=== PATIENT | female | born 1985 | race Caucasian/White ===

== ENCOUNTER → 2016-12-08 11:24 | Emergency (ER) | payer SELFPAY ==
[~2016-12-08 11:24] MED LIST: Ketorolac INJ* 30 MG/ML 1 ML VIAL IV PUSH ONE; Metoclopramide IV* 5 MG/ML 2 ML VIAL IV SLOW PU ONE; NS 0.9% 1000 ML* 1,000 ML IV ONE; Ondansetron INJ* 2 MG/ML VIAL IV ONE; diPHENhydraMINE IV* 50 MG/ML 1 ml VIAL (BENADRYL) SLOW PUSH ONE
--- NOTE | 2016-12-08 13:38 | RAD ---
Indication: Numbness, facial droop. CT of the brain was performed without IV contrast. Ventricular structures are midline. No midline shift is noted. The extra-axial spaces are unremarkable. There is no evidence of intracranial mass or hemorrhage. No other high or low density lesions are identified. Mastoid air cells and paranasal sinuses are unremarkable. IMPRESSION: No intracranial mass or hemorrhage is noted.
[2016-12-08 13:55] LABS: Hematocrit 36 % (35-47); Hemoglobin 12.8 g/dl (12.0-16.0); Mean Corpuscular HGB Conc 35 g/dl (31-36); Mean Corpuscular Hemoglobin 34 pg (27-31); Mean Corpuscular Volume 96 fL (80-97); Mean Platelet Volume 10 um3 (7.4-10.4); Red Blood Count 3.75 10^6/ul (4.0-5.4); Red Cell Distribution Width 12 % (10.5-15); White Blood Count 7.8 10^3/ul (3.5-10.8)
[2016-12-08 14:07] LABS: Albumin 3.6 g/dL (3.2-5.2); BUN/Creatinine Ratio 13.4 (8-20); Calcium 8.8 mg/dL (8.6-10.3); EGFR African American 85.6 (>60); EGFR Non-African American 66.6 (>60); Globulin 3.3 g/dL (2-4); Total Bilirubin 0.5 mg/dL (0.2-1.0); Total Protein 6.9 g/dL (6.4-8.9)
[2016-12-08 16:06] VITALS: BP 124/57
--- NOTE | 2016-12-11 14:46 | ED ---
Juliana Cardenas Thomas, scribed for Hunter Cordova MD on 12/08/16 at 1441 . Neurological HPI - HPI Summary HPI Summary: The pt is a 31 y/o F presenting to the ED c/o transient neurological deficits that began approximately a week ago. She complaints of bilateral hand paresthesias, involuntary eye movements, blurry vision, forgetfulness, and R- sided facial droop. She has none of these symptoms in the ED. She has had migraines on and off for the last year. In the ED, she has a migraine headache rated 8/10 that began last week and has worsened over the last three days. The patient reports that about a year ago she had TIA symptoms due to her migraines. She was not diagnosed with a TIA. She also complains of nausea, photophobia. Pt denies vomiting. Her migraines are managed by her PCP. She has not seen a neurologist. She is not on any medications. LNMP a week ago. She is accompanied by her sister Wiliam. - History of Current Complaint Chief Complaint: EDNeurologicalDeficit Stated Complaint: HEADACHE,RT HAND NUMBNESS Time Seen by Provider: 12/08/16 13:05 Hx Obtained From: Patient, Family/Cable Braider - sister is present Hx Last Menstrual Period: 10/22/14 Onset/Duration: Started weeks ago - onset of symptoms one week ago, Resolved Timing: Intermittent Episodes Lasting: Current Severity: None Pain Intensity: 8 Pain Scale Used: 0-10 Numeric Character: Other: - similar to her past migraine headaches Aggravating: Nothing Alleviating: Nothing Associated Signs and Symptoms: Positive: Visual Changes - involuntary, Headache - Additional Pertinent History Primary Care Physician: [id number] - Allergy/Home Medications Allergies/Adverse Reactions: Allergies Allergy/AdvReac Type Severity Reaction Status Date / Time Penicillins Allergy Rash Verified 07/08/15 15:56 Sumatriptan [From Imitrex] Allergy Hives Verified 12/08/16 11:35 PMH/Surg Hx/FS Hx/Imm Hx Previously Healthy: No Endocrine/Hematology History: Denies: Hx Diabetes, Hx Thyroid Disease Cardiovascular History: Denies: Hx Hypertension, Hx Pacemaker/ICD Respiratory History: Reports: Hx Asthma Denies: Hx Chronic Obstructive Pulmonary Disease (COPD) GI History: Denies: Hx Ulcer History: Denies: Hx Renal Disease Musculoskeletal History: Reports: Hx Back Problems Denies: Hx Scoliosis Sensory History: Reports: Hx Contacts or Glasses, 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 Denies: Hx Hearing Aid Opthamlomology History: Reports: Hx Contacts or Glasses Neurological History: Reports: Hx Headaches Denies: Other Neuro Impairments/Disorders Psychiatric History: Reports: Hx Anxiety, Hx Depression Denies: Hx Panic Disorder - Surgical History Surgery Procedure, Year, and Place: ADNOIDS AND EAR TUBES - Immunization History Date of Tetanus Vaccine: Date of Influenza Vaccine: Infectious Disease History: No Infectious Disease History: Denies: Hx Hepatitis, Hx Human Immunodeficiency Virus (HIV), Traveled Outside the [place] in Last 30 Days - Family History Known Family History: Positive: Other - negative for migraines - Social History Alcohol Use: Occasionally Hx Substance Use: No Substance Use Type: Reports: None Hx Tobacco Use: No Smoking Status (MU): Never Smoked Tobacco Review of Systems Negative: Fever, Chills Positive: Photophobia, Blurred Vision, Other - Involuntary eye movements. Negative: Erythema - eyes Negative: Sore Throat Negative: Chest Pain Negative: Shortness Of Breath, Cough Positive: Nausea. Negative: Abdominal Pain, Vomiting Negative: dysuria, hematuria Negative: Myalgia, Edema - legs Negative: Rash Neurological: Other - Bilateral hand paresthesias, forgetfulness, R-sided facial droop; NEGATIVE: dizziness Positive: Headache - 8/10, similar to migraine, All Other Systems Reviewed And Are Negative: Yes Physical Exam - Summary Physical Exam Summary: Constitutional: Well-developed, Well-nourished, Alert. (-) Distressed Skin: Warm, Dry HENT: Eyes: Conjunctiva normal Neck: Musculoskeletal ROM normal neck. (-) JVD, (-) Stridor, (-) Tracheal deviation Cardio: Rhythm regular, rate normal, Heart sounds normal; Intact distal pulses; The pedal pulses are 2+ and symmetric. Radial pulses are 2+ and symmetric. (-) Murmur Pulmonary/Chest wall: Effort normal. (-) Respiratory distress, (-) Wheezes, (-) Rales Abd: Soft. (-) Tenderness, (-) Distension, (-) Guarding, (-) Rebound Musculoskeletal: (-) Edema Lymph: (-) Cervical adenopathy Neuro: Alert, Oriented x3, Strength normal, Cranial nerves II-XII are grossly intact. (-) Dysmetria, (-) Nystagmus, (-) Ataxia by finger to nose testing, (-) Sensory deficit. Psych: Mood and affect Normal Triage Information Reviewed: Yes Vital Signs On Initial Exam: Initial Vitals Temp Pulse Resp BP Pulse Ox 97.5 F 95 17 165/77 99 12/08/16 11:30 12/08/16 11:30 12/08/16 11:30 12/08/16 11:30 12/08/16 11:30 Vital Signs Reviewed: Yes - Sebastian Coma Scale Coma Scale Total: 15 Diagnostics - Vital Signs Vital Signs Temp Pulse Resp BP Pulse Ox 12/08/16 14:06 65 99 12/08/16 14:05 75 99 12/08/16 14:03 104/66 12/08/16 11:30 97.5 F 95 17 165/77 99 - Laboratory Lab Results: Lab Results 12/08/16 12/08/16 Range/Units 13:36 13:36 WBC 7.8 (3.5-10.8) 10^3/ul RBC 3.75 L (4.0-5.4) 10^6/ul Hgb 12.8 (12.0-16.0) g/dl Hct 36 (35-47) % MCV 96 (80-97) fL MCH 34 H (27-31) pg MCHC 35 (31-36) g/dl RDW 12 (10.5-15) % Plt Count 254 (150-450) 10^3/ul MPV 10 (7.4-10.4) um3 Sodium 134 (133-145) mmol/L Potassium 4.0 (3.5-5.0) mmol/L Chloride 103 (101-111) mmol/L Carbon Dioxide 25 (22-32) mmol/L Anion Gap 6 (2-11) mmol/L BUN 13 (6-24) mg/dL Creatinine 0.97 H (0.51-0.95) mg/dL Est GFR ( Amer) 85.6 (>60) Est GFR (Non-Af Amer) 66.6 (>60) BUN/Creatinine Ratio 13.4 (8-20) Glucose 115 H (70-100) mg/dL Calcium 8.8 (8.6-10.3) mg/dL Total Bilirubin 0.50 (0.2-1.0) mg/dL AST 38 (13-39) U/L ALT 50 (7-52) U/L Alkaline Phosphatase 56 (34-104) U/L Total Protein 6.9 (6.4-8.9) g/dL Albumin 3.6 (3.2-5.2) g/dL Globulin 3.3 (2-4) g/dL Albumin/Globulin Ratio 1.1 (1-3) Result Diagrams: 12/08/16 13:36 12/08/16 13:36 Lab Statement: Any lab studies that have been ordered have been reviewed, and results considered in the medical decision making process. - CT CT Brain CT Interpretation: No Acute Changes - CT Brain shows no intracranial mass or hemorrhage is noted. ED physician has reviewed this radiology report and agrees. CT Interpretation Completed By: Radiologist Course/Dx - Course Assessment/Plan: The pt is a 31 y/o F presenting to the ED c/o transient neurological deficits that began approximately a week ago. She complaints of bilateral hand paresthesias, involuntary eye movements, blurry vision, forgetfulness, and R-sided facial droop. She has none of these symptoms in the ED. She has had migraines on and off for the last year. In the ED, she has a migraine headache rated 8/10 that began last week and has worsened over the last three days. The patient reports that about a year ago she had TIA symptoms due to her migraines. She was not diagnosed with a TIA. She also complains of nausea, photophobia. Pt denies vomiting. Her migraines are managed by her PCP. She has not seen a neurologist. She is not on any medications. LNMP a week ago. She is accompanied by her sister Wiliam. The patient had a normal neurological exam. In the ED course the patient was given Toradol, Reglan, IV fluids, Zofran , and Benadryl. Bloodwork shows RBC 3.75, creatinine 0.97. CT Brain shows no intracranial mass or hemorrhage is noted. ED physician has reviewed this radiology report and agrees. Because the paresthesia is bilateral, I do not believe that this reflects a stroke etiology. Patient is diagnosed with migraine and paresthesia. Patient will be discharged home with follow up by neurology in two days. She was given a script for Reglan. Patient is agreeable to this plan. - Diagnoses Provider Diagnoses: Migraine, Paresthesia Discharge - Discharge Plan Condition: Stable Disposition: HOME Prescriptions: Metoclopramide TAB* [Reglan TAB*] 10 mg PO Q8H PRN #6 tab PRN Reason: Pain - Moderate To Severe Patient Education Materials: Paresthesia (ED), Migraine Headache (ED) Referrals: Joseph Shankar MD [Medical Doctor] - 2 Days Additional Instructions: Follow up with Dr. Shankar in 2-3 days. Return to the emergency department for any new or worsening symptoms. The documentation as recorded by the Juliana you Thomas accurately reflects the service I personally performed and the decisions made by Tasha arias Jerry, MD.
== END | disposition home or self-care (01) ==
LOC: ED 11:24
DX: G43.909 Migraine, unspecified, not intractable, without status migrainosus (principal); R20.9 Unspecified disturbances of skin sensation; Z88.0 Allergy status to penicillin; F41.9 Anxiety disorder, unspecified; F32.9 Major depressive disorder, single episode, unspecified
CPT/HCPCS: 36415; 70450; 80053; 85027; 96360; 96374; 96375; 99282; J1200; J1885; J2405; J2765

== ENCOUNTER 2017-08-16 13:39 | Emergency (ER) | payer OTHER ==
--- NOTE | 2017-08-16 15:31 | ED ---
Upper Extremity Pain - HPI Summary HPI Summary: Patient is a 32-year-old female presenting to the ED with 2 days of muscle cramp and stiffness to the left side of the neck and shoulder. She states she awoke with this 2 days ago and has remained constant, worse with movement, better with rest. She has been taking ibuprofen without relief. Denies any symptoms like this in the past. Denies any color or temperature changes to the arm. Denies any numbness or tingling. No cardiac history. Vital signs are stable. Patient denies any recent illness or trauma - History of Current Complaint Chief Complaint: EDExtremityUpper Stated Complaint: LT SHOULDER PAIN Time Seen by Provider: 08/16/17 14:22 Hx Obtained From: Patient Hx Last Menstrual Period: 12/16/16 Mechanism Of Injury: Unknown Onset/Duration: Started Days Ago Timing: Constant Severity Initially: Moderate Severity Currently: Moderate Pain Location: Shoulder, Other: - neck Character: Aching Aggravating Factor(s): Flexion, Extension Associated Signs & Symptoms: Negative: Swelling, Redness, Bruising, Numbness/ Tingling, Diaphoresis, Nausea, Vomiting Related History: Dominant Hand Right - Risk Factors Non-Orthopedic Risk Factor: Negative DVT Risk Factors: Negative Septic Arthritis Risk Factor: Negative Compartment Syndrome Risk Factors: Pain - Allergies/Home Medications Allergies/Adverse Reactions: Allergies Allergy/AdvReac Type Severity Reaction Status Date / Time Penicillins Allergy Rash Verified 08/16/17 13:49 sumatriptan Allergy Hives Verified 08/16/17 13:49 PMH/Surg Hx/FS Hx/Imm Hx Previously Healthy: Yes Endocrine/Hematology History: Denies: Hx Diabetes, Hx Thyroid Disease Cardiovascular History: Denies: Hx Hypertension, Hx Pacemaker/ICD Respiratory History: Reports: Hx Asthma Denies: Hx Chronic Obstructive Pulmonary Disease (COPD) GI History: Denies: Hx Ulcer History: Denies: Hx Renal Disease Musculoskeletal History: Reports: Hx Back Problems Denies: Hx Scoliosis Sensory History: Reports: Hx Contacts or Glasses, 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 Denies: Hx Hearing Aid Opthamlomology History: Reports: Hx Contacts or Glasses Neurological History: Reports: Hx Headaches Denies: Other Neuro Impairments/Disorders Psychiatric History: Reports: Hx Anxiety, Hx Depression Denies: Hx Panic Disorder - Surgical History Surgery Procedure, Year, and Place: ADENOIDS AND EAR TUBES - Immunization History Date of Tetanus Vaccine: ukwn Date of Influenza Vaccine: wn Hx Pertussis Vaccination: No Immunizations Up to Date: Unable to Obtain/Confirm Infectious Disease History: Unable to Obtain/Confirm Infectious Disease History: Denies: Hx Clostridium Difficile, Hx Hepatitis, Hx Human Immunodeficiency Virus (HIV), Hx of Known/Suspected MRSA, Hx Shingles, Hx Tuberculosis, Hx Known/ Suspected VRE, Hx Known/Suspected VRSA, Traveled Outside the [place] in Last 30 Days - Family History Known Family History: Positive: Other - negative for migraines - Social History Occupation: Employed Full-time Lives: Alone Alcohol Use: Occasionally Hx Substance Use: No Substance Use Type: Reports: None Hx Tobacco Use: No Smoking Status (MU): Never Smoked Tobacco Review of Systems Constitutional: Negative Negative: Fever, Chills, Fatigue Negative: Palpitations, Chest Pain Negative: Shortness Of Breath Genitourinary: Negative Positive: no symptoms reported, see HPI Positive: Arthralgia, Myalgia Skin: Negative Neurological: Negative All Other Systems Reviewed And Are Negative: Yes Physical Exam Triage Information Reviewed: Yes Vital Signs On Initial Exam: Initial Vitals Temp Pulse Resp BP Pulse Ox 97.2 F 64 17 131/63 100 08/16/17 13:45 08/16/17 13:45 08/16/17 13:45 08/16/17 13:45 08/16/17 13:45 Vital Signs Reviewed: Yes Appearance: Positive: Well-Appearing, Well-Nourished Skin: Positive: Warm, Skin Color Reflects Adequate Perfusion Head/Face: Positive: Normal Head/Face Inspection Eyes: Positive: EOMI, KIRILL, Conjunctiva Clear Neck: Positive: Supple, No Lymphadenopathy Respiratory/Lung Sounds: Positive: Clear to Auscultation, Breath Sounds Present Cardiovascular: Positive: RRR, Pulses are Symmetrical in both Upper and Lower Extremities Musculoskeletal: Positive: Pain @ - left sided shoulder and neck pain Neurological: Positive: Speech Normal Psychiatric: Positive: Affect/Mood Appropriate AVPU Assessment: Alert Diagnostics - Vital Signs Vital Signs Temp Pulse Resp BP Pulse Ox 08/16/17 13:45 97.2 F 64 17 131/63 100 - Laboratory Lab Statement: Any lab studies that have been ordered have been reviewed, and results considered in the medical decision making process. Course/Dx - Course Course Of Treatment: Patient's evaluated for cervical strain versus muscle cramp to the left side of the neck which was acute onset upon awakening 2 days ago. Pain is a cramping sensation, rated a 4/10, constant, worse at night and with range of motion, better with rest. She is unable to abduct past 90 due to pain. Abduction is without pain. Pulses +2 intact bilaterally. Denies any numbness or tingling. On physical examination, her is no noted weakness. Patient will be discharged with a prescription for Flexeril, encouraged ibuprofen and moist heat to the area. - Diagnoses Provider Diagnoses: Neck pain Discharge - Sign-Out/Discharge Documenting (check all that apply): Discharge/Admit/Transfer - Discharge Plan Condition: Stable Disposition: HOME Prescriptions: Cyclobenzaprine TAB* [Flexeril TAB*] 10 mg PO BID PRN #10 tab PRN Reason: Spasms Ibuprofen 600 mg PO TID PRN #30 tablet MDD 3 PRN Reason: Pain Patient Education Materials: Muscle Spasm (ED), Muscle Cramp (ED) Forms: *Work Release Referrals: No Primary Care Phys,NOPCP [Primary Care Provider] - Additional Instructions: Flexeril up to twice daily x 5 days for muscle pain For severe muscle ache, may be used 3 times daily Moist heat to the area Ibuprofen 600mg three times daily for pain/inflammation Note given for work For worsening symptoms, return to the ED - Billing Disposition and Condition Condition: STABLE Disposition: Home
[2017-08-16 15:35] VITALS: BP 138/86
== END 2017-08-16 15:34 | disposition home or self-care (01) ==
LOC: ED 13:39
DX: M54.2 Cervicalgia (principal); Z88.0 Allergy status to penicillin; Z88.8 Allergy status to other drugs, medicaments and biological substances
CPT/HCPCS: 99281

== ENCOUNTER 2018-07-06 22:08 | Emergency (ER) | payer BC, OTHER ==
[2018-07-06 23:07] LABS: ABS Basophils 0 10^3/ul (0-0.2); ABS Eosinophils 0.1 10^3/ul (0-0.6); ABS Lymphocytes 4.1 10^3/ul (1.0-4.8); ABS Monocytes 0.7 10^3/ul (0-0.8); ABS Neutrophils 5.8 10^3/ul (1.5-7.7); ABS Nucleated RBC 0 10^3/ul; Eosinophil % 1.3 %; Hematocrit 38 % (33-41); Hemoglobin 13.3 g/dL (12.0-16.0); Lymphocyte % 37.7 %; Mean Corpuscular HGB Conc 35 g/dL (31-36); Mean Corpuscular Hemoglobin 34 pg (27-31); Mean Corpuscular Volume 97 fL (80-97); Mean Platelet Volume 9.7 fL (7.4-10.4); Nucleated Red Blood Cells % 0.2; Platelet Count 262 10^3/uL (150-450); Red Blood Count 3.88 10^6 /uL (3.70-4.87); Red Cell Distribution Width 12 % (10.5-15); White Blood Count 10.9 10^3/uL (3.5-10.8)
[2018-07-06 23:30] LABS: ALT 45 U/L (7-52); Albumin/Globulin Ratio 1.3 (1-3); Alkaline Phosphatase 63 U/L (34-104); BUN/Creatinine Ratio 16.1 (8-20); Blood Urea Nitrogen 18 mg/dL (6-24); C Reactive Protein 12.16 mg/L (<8.01); CO2 Carbon Dioxide 28 mmol/L (22-32); Calcium 9.2 mg/dL (8.6-10.3); Chloride 102 mmol/L (101-111); EGFR African American 67.4 (>60); EGFR Non-African American 55.7 (>60); Glucose 170 mg/dL (70-100); Sodium 137 mmol/L (135-145)
[2018-07-06 23:37] LABS: HCG Pregnancy < 0.60 mIU/mL
[2018-07-06 23:49] LABS: Anion Gap 7 mmol/L (2-11)
[2018-07-06 23:52] LABS: AST 25 U/L (13-39)
[2018-07-07] MEDS ORDERED: NS 0.9% 1000 ML** 1,000 ML IV ONE (01:46)
[2018-07-07] MEDS ORDERED: diPHENhydraMINE IV* 50 MG/ML 1 ml VIAL (BENADRYL) IV ONE (01:46)
[2018-07-07] MEDS ORDERED: Metoclopramide IV* 5 MG/ML 2 ML VIAL IV ONE (01:46)
[2018-07-07] MEDS ORDERED: Ketorolac INJ* 30 MG/ML 1 ML VIAL IV ONE (01:46)
--- NOTE | 2018-07-07 02:06 | ED ---
Headache - HPI Summary HPI Summary: Patient complains of swelling to right arm and migraine headache. Swelling to right arm started when she woke up Wednesday morning, states it has improved but just concerned as her father has a cardiac history. Denies pain in right upper extremity. History of migraines, states this is her usual migraine. Denies trauma, fever, neck stiffness, cough, sore throat, CP, SOB, N/V/V abdominal pain , change in urine, change in BM. Medical history is migraines, chronic back pain. Patient also denies OCPs, estrogen supplements, history of cancer, , recent surgery,. - History Of Current Complaint Chief Complaint: EDDizziness Stated Complaint: RT ARM SWOLLEN/HEADACHE PER PT Time Seen by Provider: 07/07/18 01:05 Hx Obtained From: Patient Hx Last Menstrual Period: 12/16/16 Onset/Duration: Gradual Onset, Started days ago Initially Headache Was: Moderate Currently Pain Is: Moderate Timing: Hours Character: Typical Headache Aggravating Factor: Bright Lights Allevating Factors: Nothing - Allergies/Home Medications Allergies/Adverse Reactions: Allergies Allergy/AdvReac Type Severity Reaction Status Date / Time Penicillins Allergy Rash Verified 08/16/17 13:49 sumatriptan Allergy Hives Verified 08/16/17 13:49 PMH/Surg Hx/FS Hx/Imm Hx Endocrine/Hematology History: Denies: Hx Diabetes, Hx Thyroid Disease Cardiovascular History: Denies: Hx Hypertension, Hx Pacemaker/ICD Respiratory History: Reports: Hx Asthma Denies: Hx Chronic Obstructive Pulmonary Disease (COPD) GI History: Denies: Hx Ulcer History: Denies: Hx Renal Disease Musculoskeletal History: Reports: Hx Back Problems Denies: Hx Scoliosis Sensory History: Reports: Hx Contacts or Glasses, 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 Denies: Hx Hearing Aid Opthamlomology History: Reports: Hx Contacts or Glasses Neurological History: Reports: Hx Headaches Denies: Other Neuro Impairments/Disorders Psychiatric History: Reports: Hx Anxiety, Hx Depression Denies: Hx Panic Disorder - Surgical History Surgery Procedure, Year, and Place: ADENOIDS AND EAR TUBES - Immunization History Date of Tetanus Vaccine: Date of Influenza Vaccine: Infectious Disease History: No Infectious Disease History: Denies: Hx Clostridium Difficile, Hx Hepatitis, Hx Human Immunodeficiency Virus (HIV), Hx of Known/Suspected MRSA, Hx Shingles, Hx Tuberculosis, Hx Known/ Suspected VRE, Hx Known/Suspected VRSA, Traveled Outside the [place] in Last 30 Days - Family History Known Family History: Positive: Other - negative for migraines - Social History Alcohol Use: Occasionally Hx Substance Use: No Substance Use Type: Reports: None Hx Tobacco Use: No Smoking Status (MU): Never Smoked Tobacco Review of Systems Constitutional: Negative Eyes: Negative ENT: Negative Cardiovascular: Negative Respiratory: Negative Gastrointestinal: Negative Genitourinary: Negative Musculoskeletal: Other Skin: Negative Positive: Headache Psychological: Normal All Other Systems Reviewed And Are Negative: Yes Physical Exam - Summary Physical Exam Summary: Neck supple. Neuro exam normal. Mild swelling to right upper extremity. No erythema, ecchymosis, wound, deformity noted. Full range of motion of all joints of right upper extremity. No pain with palpation of right upper extremity. PMS intact distally. 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 Triage Information Reviewed: Yes Vital Signs On Initial Exam: Initial Vitals Temp Pulse Resp BP Pulse Ox 98.3 F 76 18 111/86 98 07/06/18 22:15 07/06/18 22:15 07/06/18 22:15 07/06/18 22:15 07/06/18 22:15 Vital Signs Reviewed: Yes Appearance: Positive: Well-Appearing Skin: Positive: Warm Head/Face: Positive: Normal Head/Face Inspection Eyes: Positive: Normal Neck: Positive: Supple Respiratory/Lung Sounds: Positive: Clear to Auscultation Cardiovascular: Positive: Normal Abdomen Description: Positive: Nontender Musculoskeletal: Positive: Normal Neurological: Positive: Normal Psychiatric: Positive: Normal AVPU Assessment: Alert - Sebastian Coma Scale Best Eye Response: 4 - Spontaneous Best Motor Response: 6 - Obeys Commands Best Verbal Response: 5 - Oriented Coma Scale Total: 15 Diagnostics - Vital Signs Vital Signs Temp Pulse Resp BP Pulse Ox 07/07/18 00:51 69 98 07/07/18 00:50 132/84 07/06/18 22:15 98.3 F 76 18 111/86 98 - Laboratory Lab Results: Lab Results 07/06/18 07/06/18 Range/Units 22:47 22:47 WBC 10.9 H (3.5-10.8) 10^3/uL RBC 3.88 (3.70-4.87) 10^6 /uL Hgb 13.3 (12.0-16.0) g/dL Hct 38 (33-41) % MCV 97 (80-97) fL MCH 34 H (27-31) pg MCHC 35 (31-36) g/dL RDW 12 (10.5-15) % Plt Count 262 (150-450) 10^3/uL MPV 9.7 (7.4-10.4) fL Neut % (Auto) 53.7 % Lymph % (Auto) 37.7 % [place] % (Auto) 6.9 % Eos % (Auto) 1.3 % Baso % (Auto) 0.4 % Absolute Neuts (auto) 5.8 (1.5-7.7) 10^3/ul Absolute Lymphs (auto) 4.1 (1.0-4.8) 10^3/ul Absolute Monos (auto) 0.7 (0-0.8) 10^3/ul Absolute Eos (auto) 0.1 (0-0.6) 10^3/ul Absolute Basos (auto) 0 (0-0.2) 10^3/ul Absolute Nucleated RBC 0 10^3/ul Nucleated RBC % 0.2 Sodium 137 (135-145) mmol/L Potassium 4.0 (3.5-5.0) mmol/L Chloride 102 (101-111) mmol/L Carbon Dioxide 28 (22-32) mmol/L Anion Gap 7 (2-11) mmol/L BUN 18 (6-24) mg/dL Creatinine 1.12 H (0.51-0.95) mg/dL Est GFR ( Amer) 67.4 (>60) Est GFR (Non-Af Amer) 55.7 (>60) BUN/Creatinine Ratio 16.1 (8-20) Glucose 170 H (70-100) mg/dL Calcium 9.2 (8.6-10.3) mg/dL Total Bilirubin 0.30 (0.2-1.0) mg/dL AST 25 (13-39) U/L ALT 45 (7-52) U/L Alkaline Phosphatase 63 (34-104) U/L Troponin I 0.00 (<0.04) ng/mL C-Reactive Protein 12.16 H (<8.01) mg/L Total Protein 7.0 (6.4-8.9) g/dL Albumin 4.0 (3.2-5.2) g/dL Globulin 3.0 (2-4) g/dL Albumin/Globulin Ratio 1.3 (1-3) Lipase 24 (11.0-82.0) U/L Beta HCG, Quant < 0.60 mIU/mL Result Diagrams: 07/06/18 22:47 07/06/18 22:47 Lab Statement: Any lab studies that have been ordered have been reviewed, and results considered in the medical decision making process. Headache Course/Dx - Course Course Of Treatment: Patient complains of swelling to right arm and migraine headache. Swelling to right arm started when she woke up Wednesday morning, states it has improved but just concerned as her father has a cardiac history. Denies pain in right upper extremity. History of migraines, states this is her usual migraine. Denies trauma, fever, neck stiffness, cough, sore throat, CP, SOB, N/V/V abdominal pain, change in urine, change in BM. Medical history is migraines, chronic back pain. Patient also denies OCPs, estrogen supplements, history of cancer, , recent surgery,. Physical exam: Neck supple. Neuro exam normal. Mild swelling to right upper extremity. No erythema, ecchymosis, wound, deformity noted. Full range of motion of all joints of right upper extremity. No pain with palpation of right upper extremity. PMS intact distally. 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 Vital signs within normal limits. Labs unremarkable or at patient baseline. Headache significantly improved with migraine cocktail. EKG sinus arrhythmia. . Patient has apointment with PCP tomorrow. Patient advised to follow-up with PCP for migraine headaches and right arm swelling. Patient understands and approved of plan. - Diagnoses Provider Diagnoses: Migraine, Swelling of right upper extremity Discharge - Sign-Out/Discharge Documenting (check all that apply): Patient Departure Patient Received Moderate/Deep Sedation with Procedure: No - Discharge Plan Condition: Stable Disposition: HOME Patient Education Materials: Migraine Headache (ED) Referrals: No Primary Care Phys,NOPCP [Primary Care Provider] - Additional Instructions: Elevate right arm. Follow-up with primary care for further evaluation of right arm and migraine headache. Return to the ED for any new or worsening symptoms. - Billing Disposition and Condition Condition: STABLE Disposition: Home
[2018-07-07] MEDS ORDERED: Acetaminophen TAB* 325 MG PO ONE (04:17)
[2018-07-07 04:24] VITALS: BP 110/62
== END 2018-07-07 04:24 | disposition home or self-care (01) ==
LOC: ED 22:08
DX: G43.909 Migraine, unspecified, not intractable, without status migrainosus (principal); R22.31 Localized swelling, mass and lump, right upper limb; Z88.0 Allergy status to penicillin
CPT/HCPCS: 36415; 80053; 83690; 84484; 84702; 85025; 86140; 93005; 96361; 96374; 96375; 96376; 99283; A9270-GY; J1200; J1885; J2765